=== PATIENT | male | born 1945 | race Caucasian/White ===

== ENCOUNTER 2024-05-21 13:44 | Emergency (ER) | payer MEDICARE, SELFPAY ==
[2024-05-21] VITALS (72 sets, daily range): BP systolic 176–230; BP diastolic 77–148; PULSE 52–133; TEMP 36.6; O2SAT 93–98; BMI 36.9
--- NOTE | 2024-05-21 13:58 | XR_ITS ---
[address] [address] Patient Name: DANG BALDERAS MRN: [id number] date: 1945 Sex: M Assigned Patient Location: ER Current Patient Location: ER Accession/Order Number: [id number] Exam Date: 05/21/2024 14:22 Report Date: 05/21/2024 15:16 At the request of: RENAY MAY Procedure: XR chest 1V EXAM: XR chest 1V HISTORY: change in mental status COMPARISON: None FINDINGS/IMPRESSION: 1. Small left pleural effusion. 2. Bilateral pulmonary vascular congestion. 3. No pneumothorax. 4. Moderate degeneration of the bilateral acromioclavicular joints. 5. Upper abdominal bowel gas pattern is nonspecific. 6. Diffuse idiopathic skeletal hyperostosis of the thoracic spine. Electronically authenticated by: PAULA QUIROGA Date: 05/21/2024 15:16
--- NOTE | 2024-05-21 13:58 | ECG_ITS ---
[facility] Test Date: 2024-05-21 Pat Name: DANG BALDERAS Department: Room: - Gender: Male Delinquent Account Clerk: : 1945 Requested By: Order Number: [id number] Reading MD: ANEESH LOMELI Measurements Intervals [place] Rate: 57 P: 13 NM: 206 QRS: -1 QRSD: 116 T: 44 QT: 468 QTc: 462 Interpretive Statements 1100 Sinus rhythm 1470 with occasional supraventricular premature complexes 2320 Nonspecific intraventricular conduction delay 8304 Long QTc interval 9150 abnormal ECG No previous ECG available for comparison Electronically Signed On 05-22-2024 7:45:07 EDT by ANEESH LOMELI
[2024-05-21 14:04] LABS: Glucometer 119 mg/dL (74-106)
--- NOTE | 2024-05-21 14:07 | ED_ITS ---
Documented by User: Marco Antonio Ramirez MD 05/21/24 16:51 HPI - Altered Mental Status General Chief Complaint: Altered Mental Status Stated Complaint: ALTERED MENTAL Time Seen by Provider: 05/21/24 14:02 Source: patient Mode of arrival: ambulance History of Present Illness HPI narrative: This patient arrived by paramedics. He lives alone in his home and he actually called medics. He told him he just did not feel good. No documented or suspected history of falls or injury at this time. He is somewhat of a limited historian. He states he was at the [facility] recently and may have had a stroke previously but he cannot remember. He denies any headache. He has no chest pain no abdominal pain no nausea or vomiting says he just very family members are not here at this time. He indicates that he has not been to this hospital previously. Denies any specific pain syndrome at this time. He just says he feels weak and does not feel good. Related Data Home Medications ?Medication ?Instructions ?Recorded ?Confirmed amlodipine 5 mg tablet 5 mg PO DAILY 05/21/24 05/21/24 calcitriol 0.25 mcg capsule 0.25 mcg PO .3XAWEEK 05/21/24 05/21/24 carvedilol 25 mg tablet 25 mg PO BID 05/21/24 05/21/24 diphenhydramine HCl 25 mg tablet 25 mg PO QPM 05/21/24 05/21/24 (Allergy Relief (diphenhydramine)) furosemide 40 mg tablet 40 mg PO DAILY 05/21/24 05/21/24 hydralazine 100 mg tablet 100 mg PO TID 05/21/24 losartan 100 mg tablet 100 mg PO DAILY 05/21/24 05/21/24 metoprolol succinate 200 mg 200 mg PO DAILY 05/21/24 05/21/24 tablet,extended release 24 hr nifedipine 60 mg tablet,extended 60 mg PO QAM 05/21/24 05/21/24 release 24 hr probenecid 500 mg-colchicine 0.5 1 tab PO DAILY 05/21/24 05/21/24 mg tablet terazosin 10 mg capsule 10 mg PO QPM 05/21/24 05/21/24 Allergies Allergy/AdvReac Type Severity Reaction Status Date / Time allopurinol Allergy Severe Unknown Verified 05/21/24 13:56 amlodipine Allergy Severe Unknown Verified 05/21/24 13:56 atorvastatin [From Lipitor] Allergy Severe Unknown Verified 05/21/24 13:56 lisinopril Allergy Severe Unknown Verified 05/21/24 13:56 ropinirole Allergy Severe Unknown Verified 05/21/24 13:56 [facility] Medical History (Updated 05/22/24 @ 06:31 by Paolo Palencia MD) Prediabetes ?R73.03 - Prediabetes (ICD-10) Hypertension ?I10 - Essential (primary) hypertension (ICD-10) Chronic kidney disease ?N18.9 - Chronic kidney disease, unspecified (ICD-10) Exam Constitutional Vital Signs, click to edit/add: Last Vital Signs Temp 97.9 F 05/21/24 13:48 Pulse 60 05/21/24 23:12 Resp 20 05/21/24 23:12 BP 194/77 H 05/21/24 23:12 Pulse Ox 97 05/21/24 19:20 O2 Del Method Room Air 05/21/24 14:21 Course Vital Signs Vital signs: Vital Signs Temperature 97.9 F 05/21/24 13:48 Pulse Rate 54 L 05/21/24 13:48 Respiratory Rate 22 H 05/21/24 13:48 Blood Pressure 226/93 H 05/21/24 13:48 Pulse Oximetry 96 05/21/24 13:48 Oxygen Delivery Method Room Air 05/21/24 13:48 Temperature 97.9 F 05/21/24 13:48 Pulse Rate 60 05/21/24 23:12 Respiratory Rate 20 05/21/24 23:12 Blood Pressure 194/77 H 05/21/24 23:12 Pulse Oximetry 97 05/21/24 19:20 Oxygen Delivery Method Room Air 05/21/24 14:21 MDM - Altered Mental Status Lab Data Labs: Lab Results 05/21/24 05/21/24 05/21/24 Range/Units 13:35 13:50 14:01 WBC 6.0 (4.0-11.0) 10^3/uL RBC 4.18 L (4.70-6.10) 10^6/uL Hgb 12.3 L (14.0-18.0) g/dL Hct 35.8 L (42.0-54.0) % MCV 85.6 (80.0-94.0) fL MCH 29.4 (25.9-34.0) pg MCHC 34.4 (29.9-35.2) g/dL RDW 13.9 (11.0-15.0) % Plt Count 160 (150-450) 10^3/uL MPV 10.9 (9.5-13.5) fL Neut % (Auto) 78.2 H (43.0-75.0) % Lymph % (Auto) 12.1 L (20.5-60.0) % [place] % (Auto) 7.9 (1.7-12.0) % Eos % (Auto) 0.5 L (0.9-7.0) % Baso % (Auto) 0.3 (0.2-2.0) % Neut # (Auto) 4.7 (1.4-6.5) 10^3/uL Lymph # (Auto) 0.7 L (1.2-3.8) 10^3/uL [place] # (Auto) 0.5 (0.3-0.8) 10^3/uL Eos # (Auto) 0.0 (0.0-0.7) 10^3/uL Baso # (Auto) 0.0 (0.0-0.1) 10^3/uL Abs Immat Gran (auto) 0.06 H (0.00-0.03) 10^3/uL Imm/Tot Granulo (auto) 1.0 H (0.0-0.5) % Sodium 139 (136-145) mmol/L Potassium 3.9 (3.5-5.1) mmol/L Chloride 103 (98-107) mmol/L Carbon Dioxide 23.9 (21.0-32.0) mmol/L Anion Gap 16.0 BUN 84.0 H* (7.0-18.0) mg/dL Creatinine 3.96 H (0.70-1.30) mg/dL Est GFR ( Amer) 18 L (>=60) Est GFR (Non-Af Amer) 15 L (>=60) BUN/Creatinine Ratio 21.2 Glucose 120 H (74-106) mg/dL Calcium 8.6 (8.5-10.1) mg/dL Total Bilirubin 0.9 (0.2-1.0) mg/dL AST 10 L (15-37) U/L ALT 16 (16-63) U/L Alkaline Phosphatase 75 (46-116) U/L Ammonia (11-32) umol/L Troponin I High Sens 22.2 (4.0-76.1) pg/mL Total Protein 7.1 (6.4-8.2) g/dL Albumin 3.7 (3.4-5.0) g/dL Globulin 3.4 g/dL Albumin/Globulin Ratio 1.1 Urine Color (YELLOW) Urine Clarity (CLEAR) Urine pH (5.0-9.0) Ur Specific [place] (1.005-1.025) Urine Protein (NEG/TRACE) mg/dL Urine Glucose (UA) (NEGATIVE) mg/dL Urine Ketones (NEGATIVE) mg/dL Urine Occult Blood (NEGATIVE) Urine Nitrite (NEGATIVE) Urine Bilirubin (NEGATIVE) Urine Urobilinogen (0.2-1.0) EU/dL Ur Leukocyte Esterase (NEGATIVE) Urine RBC (0-2) #/HPF Urine WBC (NONE SEEN) #/HPF Ur Squamous Epith Cells (NONE/RARE) #/LPF Urine Crystals (None Seen) #/HPF Amorphous Sediment Urine Bacteria (NONE SEEN) #/HPF Urine Casts (NONE SEEN) #/LPF Urine Mucus (NONE SEEN) Ur Culture Indicated? Urine Opiates Screen (NEGATIVE) Ur Buprenorphine Scrn (NEGATIVE) Ur Oxycodone Screen (NEGATIVE) Urine Methadone Screen (NEGATIVE) Ur Barbiturates Screen (NEGATIVE) U Tricyclic Antidepress (NEGATIVE) Ur Phencyclidine Scrn (NEGATIVE) Ur Amphetamines Screen (NEGATIVE) U Methamphetamines Scrn (NEGATIVE) U Benzodiazepines Scrn (NEGATIVE) Urine Cocaine Screen (NEGATIVE) U Cannabinoids Screen (NEGATIVE) Influenza Type A Ag Negative Influenza Type B Ag Negative SARS-CoV-2 Ag (CV2AG) Negative (NEGATIVE) POC Glucose 119 H (74-106) mg/dL 05/21/24 05/21/24 Range/Units 14:12 14:21 WBC (4.0-11.0) 10^3/uL RBC (4.70-6.10) 10^6/uL Hgb (14.0-18.0) g/dL Hct (42.0-54.0) % MCV (80.0-94.0) fL MCH (25.9-34.0) pg MCHC (29.9-35.2) g/dL RDW (11.0-15.0) % Plt Count (150-450) 10^3/uL MPV (9.5-13.5) fL Neut % (Auto) (43.0-75.0) % Lymph % (Auto) (20.5-60.0) % [place] % (Auto) (1.7-12.0) % Eos % (Auto) (0.9-7.0) % Baso % (Auto) (0.2-2.0) % Neut # (Auto) (1.4-6.5) 10^3/uL Lymph # (Auto) (1.2-3.8) 10^3/uL [place] # (Auto) (0.3-0.8) 10^3/uL Eos # (Auto) (0.0-0.7) 10^3/uL Baso # (Auto) (0.0-0.1) 10^3/uL Abs Immat Gran (auto) (0.00-0.03) 10^3/uL Imm/Tot Granulo (auto) (0.0-0.5) % Sodium (136-145) mmol/L Potassium (3.5-5.1) mmol/L Chloride (98-107) mmol/L Carbon Dioxide (21.0-32.0) mmol/L Anion Gap BUN (7.0-18.0) mg/dL Creatinine (0.70-1.30) mg/dL Est GFR ( Amer) (>=60) Est GFR (Non-Af Amer) (>=60) BUN/Creatinine Ratio Glucose (74-106) mg/dL Calcium (8.5-10.1) mg/dL Total Bilirubin (0.2-1.0) mg/dL AST (15-37) U/L ALT (16-63) U/L Alkaline Phosphatase (46-116) U/L Ammonia 15 (11-32) umol/L Troponin I High Sens (4.0-76.1) pg/mL Total Protein (6.4-8.2) g/dL Albumin (3.4-5.0) g/dL Globulin g/dL Albumin/Globulin Ratio Urine Color Lt. yellow (YELLOW) Urine Clarity Sl cloudy (CLEAR) Urine pH 6.0 (5.0-9.0) Ur Specific [place] 1.010 (1.005-1.025) Urine Protein 30 A (NEG/TRACE) mg/dL Urine Glucose (UA) Negative (NEGATIVE) mg/dL Urine Ketones Negative (NEGATIVE) mg/dL Urine Occult Blood Negative (NEGATIVE) Urine Nitrite Negative (NEGATIVE) Urine Bilirubin Negative (NEGATIVE) Urine Urobilinogen 0.2 (0.2-1.0) EU/dL Ur Leukocyte Esterase Trace A (NEGATIVE) Urine RBC 0-2 (0-2) #/HPF Urine WBC 2-5 A (NONE SEEN) #/HPF Ur Squamous Epith Cells Few A (NONE/RARE) #/LPF Urine Crystals Seen A (None Seen) #/HPF Amorphous Sediment Few Urine Bacteria Small A (NONE SEEN) #/HPF Urine Casts None seen (NONE SEEN) #/LPF Urine Mucus Trace A (NONE SEEN) Ur Culture Indicated? Yes Urine Opiates Screen Negative (NEGATIVE) Ur Buprenorphine Scrn Negative (NEGATIVE) Ur Oxycodone Screen Negative (NEGATIVE) Urine Methadone Screen Negative (NEGATIVE) Ur Barbiturates Screen Negative (NEGATIVE) U Tricyclic Antidepress Negative (NEGATIVE) Ur Phencyclidine Scrn Negative (NEGATIVE) Ur Amphetamines Screen Negative (NEGATIVE) U Methamphetamines Scrn Negative (NEGATIVE) U Benzodiazepines Scrn Negative (NEGATIVE) Urine Cocaine Screen Negative (NEGATIVE) U Cannabinoids Screen Negative (NEGATIVE) Influenza Type A Ag Influenza Type B Ag SARS-CoV-2 Ag (CV2AG) (NEGATIVE) POC Glucose (74-106) mg/dL Imaging Data Imaging: Radiologist's impression: ITS Impressions Head CT 05/21/24 14:08 IMPRESSION: No acute intracranial findings. Electronically authenticated by: KATARZYNA SMITH Date: 05/21/2024 15:28 Discharge Plan Discharge Chief Complaint: Altered Mental Status Clinical Impression: Dementia, Debility, DENNIS (acute kidney injury) Patient Disposition: [facility] Discharge Date/Time: 05/21/24 23:33 Documented by User: Paolo Palencia MD 05/22/24 06:31 HPI - Altered Mental Status General Chief Complaint: Altered Mental Status Stated Complaint: ALTERED MENTAL Time Seen by Provider: 05/21/24 14:02 Related Data Home Medications ?Medication ?Instructions ?Recorded ?Confirmed amlodipine 5 mg tablet 5 mg PO DAILY 05/21/24 05/21/24 calcitriol 0.25 mcg capsule 0.25 mcg PO .3XAWEEK 05/21/24 05/21/24 carvedilol 25 mg tablet 25 mg PO BID 05/21/24 05/21/24 diphenhydramine HCl 25 mg tablet 25 mg PO QPM 05/21/24 05/21/24 (Allergy Relief (diphenhydramine)) furosemide 40 mg tablet 40 mg PO DAILY 05/21/24 05/21/24 hydralazine 100 mg tablet 100 mg PO TID 05/21/24 losartan 100 mg tablet 100 mg PO DAILY 05/21/24 05/21/24 metoprolol succinate 200 mg 200 mg PO DAILY 05/21/24 05/21/24 tablet,extended release 24 hr nifedipine 60 mg tablet,extended 60 mg PO QAM 05/21/24 05/21/24 release 24 hr probenecid 500 mg-colchicine 0.5 1 tab PO DAILY 05/21/24 05/21/24 mg tablet terazosin 10 mg capsule 10 mg PO QPM 05/21/24 05/21/24 Allergies Allergy/AdvReac Type Severity Reaction Status Date / Time allopurinol Allergy Severe Unknown Verified 05/21/24 13:56 amlodipine Allergy Severe Unknown Verified 05/21/24 13:56 atorvastatin [From Lipitor] Allergy Severe Unknown Verified 05/21/24 13:56 lisinopril Allergy Severe Unknown Verified 05/21/24 13:56 ropinirole Allergy Severe Unknown Verified 05/21/24 13:56 Review of Systems ROS Status of ROS 10 or more systems reviewed and unremark able except as noted in history and below [facility] Medical History (Updated 05/22/24 @ 06:31 by Paolo Palencia MD) Prediabetes ?R73.03 - Prediabetes (ICD-10) Hypertension ?I10 - Essential (primary) hypertension (ICD-10) Chronic kidney disease ?N18.9 - Chronic kidney disease, unspecified (ICD-10) Exam Narrative Exam Narrative: VITALS: I have reviewed the triage vital signs. GENERAL: Well developed, well appearing adult in no acute distress. NEURO: Alert and oriented x2. Moves all extremities. Face is symmetric and expressive. EYES: PERRL. No scleral icterus or conjunctival injection. No discharge. HENT: Normocephalic, atraumatic. Hearing is grossly intact. Nares grossly patent and without discharge. Mucous membranes moist. NECK: No JVD. Patient moves neck without restriction. CARDIO: Rhythm regular. Normal rate. No murmur, rub, or gallop. Pulses equal bilaterally in the upper and lower extremity. No lower extremity edema. PULM: Lungs clear to auscultation in all [place]. No wheezes, rales, or rhonchi. No conversational dyspnea. No splinting, stridor, or accessory muscle use. GI/: Abdomen is soft and non-tender. Normoactive bowel sounds. EXTREMITIES: Symmetric muscle bulk. No joint swelling. No clubbing, cyanosis, or deformity. SKIN: Warm and dry. Normal turgor. No rash or lesions appreciated. PSYCH: Mood, affect, and interaction is appropriate to the setting. Constitutional Vital Signs, click to edit/add: Last Vital Signs Temp 97.9 F 05/21/24 13:48 Pulse 60 05/21/24 23:12 Resp 20 05/21/24 23:12 BP 194/77 H 05/21/24 23:12 Pulse Ox 97 05/21/24 19:20 O2 Del Method Room Air 05/21/24 14:21 Course Vital Signs Vital signs: Vital Signs Temperature 97.9 F 05/21/24 13:48 Pulse Rate 54 L 05/21/24 13:48 Respiratory Rate 22 H 05/21/24 13:48 Blood Pressure 226/93 H 05/21/24 13:48 Pulse Oximetry 96 05/21/24 13:48 Oxygen Delivery Method Room Air 05/21/24 13:48 Temperature 97.9 F 05/21/24 13:48 Pulse Rate 60 05/21/24 23:12 Respiratory Rate 20 05/21/24 23:12 Blood Pressure 194/77 H 05/21/24 23:12 Pulse Oximetry 97 05/21/24 19:20 Oxygen Delivery Method Room Air 05/21/24 14:21 MDM - Altered Mental Status MDM Narrative Medical decision making narrative: Signout note: Patient was signed out to me by Dr. Ramirez with admission conversation to be had. Family request that he return to [place]. Workup was reviewed. DENNIS. I discussed the case with Marlen at [facility] who accepted the patient. Transport was arranged. Patient was transported back to [facility] for further care of his DENNIS, confusion, need for placement. Medical Records Attestation: I reviewed the patient's medical records. Lab Data Attestation: I reviewed the patient's lab results. Labs: Lab Results 05/21/24 05/21/24 05/21/24 Range/Units 13:35 13:50 14:01 WBC 6.0 (4.0-11.0) 10^3/uL RBC 4.18 L (4.70-6.10) 10^6/uL Hgb 12.3 L (14.0-18.0) g/dL Hct 35.8 L (42.0-54.0) % MCV 85.6 (80.0-94.0) fL MCH 29.4 (25.9-34.0) pg MCHC 34.4 (29.9-35.2) g/dL RDW 13.9 (11.0-15.0) % Plt Count 160 (150-450) 10^3/uL MPV 10.9 (9.5-13.5) fL Neut % (Auto) 78.2 H (43.0-75.0) % Lymph % (Auto) 12.1 L (20.5-60.0) % [place] % (Auto) 7.9 (1.7-12.0) % Eos % (Auto) 0.5 L (0.9-7.0) % Baso % (Auto) 0.3 (0.2-2.0) % Neut # (Auto) 4.7 (1.4-6.5) 10^3/uL Lymph # (Auto) 0.7 L (1.2-3.8) 10^3/uL [place] # (Auto) 0.5 (0.3-0.8) 10^3/uL Eos # (Auto) 0.0 (0.0-0.7) 10^3/uL Baso # (Auto) 0.0 (0.0-0.1) 10^3/uL Abs Immat Gran (auto) 0.06 H (0.00-0.03) 10^3/uL Imm/Tot Granulo (auto) 1.0 H (0.0-0.5) % Sodium 139 (136-145) mmol/L Potassium 3.9 (3.5-5.1) mmol/L Chloride 103 (98-107) mmol/L Carbon Dioxide 23.9 (21.0-32.0) mmol/L Anion Gap 16.0 BUN 84.0 H* (7.0-18.0) mg/dL Creatinine 3.96 H (0.70-1.30) mg/dL Est GFR ( Amer) 18 L (>=60) Est GFR (Non-Af Amer) 15 L (>=60) BUN/Creatinine Ratio 21.2 Glucose 120 H (74-106) mg/dL Calcium 8.6 (8.5-10.1) mg/dL Total Bilirubin 0.9 (0.2-1.0) mg/dL AST 10 L (15-37) U/L ALT 16 (16-63) U/L Alkaline Phosphatase 75 (46-116) U/L Ammonia (11-32) umol/L Troponin I High Sens 22.2 (4.0-76.1) pg/mL Total Protein 7.1 (6.4-8.2) g/dL Albumin 3.7 (3.4-5.0) g/dL Globulin 3.4 g/dL Albumin/Globulin Ratio 1.1 Urine Color (YELLOW) Urine Clarity (CLEAR) Urine pH (5.0-9.0) Ur Specific [place] (1.005-1.025) Urine Protein (NEG/TRACE) mg/dL Urine Glucose (UA) (NEGATIVE) mg/dL Urine Ketones (NEGATIVE) mg/dL Urine Occult Blood (NEGATIVE) Urine Nitrite (NEGATIVE) Urine Bilirubin (NEGATIVE) Urine Urobilinogen (0.2-1.0) EU/dL Ur Leukocyte Esterase (NEGATIVE) Urine RBC (0-2) #/HPF Urine WBC (NONE SEEN) #/HPF Ur Squamous Epith Cells (NONE/RARE) #/LPF Urine Crystals (None Seen) #/HPF Amorphous Sediment Urine Bacteria (NONE SEEN) #/HPF Urine Casts (NONE SEEN) #/LPF Urine Mucus (NONE SEEN) Ur Culture Indicated? Urine Opiates Screen (NEGATIVE) Ur Buprenorphine Scrn (NEGATIVE) Ur Oxycodone Screen (NEGATIVE) Urine Methadone Screen (NEGATIVE) Ur Barbiturates Screen (NEGATIVE) U Tricyclic Antidepress (NEGATIVE) Ur Phencyclidine Scrn (NEGATIVE) Ur Amphetamines Screen (NEGATIVE) U Methamphetamines Scrn (NEGATIVE) U Benzodiazepines Scrn (NEGATIVE) Urine Cocaine Screen (NEGATIVE) U Cannabinoids Screen (NEGATIVE) Influenza Type A Ag Negative Influenza Type B Ag Negative SARS-CoV-2 Ag (CV2AG) Negative (NEGATIVE) POC Glucose 119 H (74-106) mg/dL 05/21/24 05/21/24 Range/Units 14:12 14:21 WBC (4.0-11.0) 10^3/uL RBC (4.70-6.10) 10^6/uL Hgb (14.0-18.0) g/dL Hct (42.0-54.0) % MCV (80.0-94.0) fL MCH (25.9-34.0) pg MCHC (29.9-35.2) g/dL RDW (11.0-15.0) % Plt Count (150-450) 10^3/uL MPV (9.5-13.5) fL Neut % (Auto) (43.0-75.0) % Lymph % (Auto) (20.5-60.0) % [place] % (Auto) (1.7-12.0) % Eos % (Auto) (0.9-7.0) % Baso % (Auto) (0.2-2.0) % Neut # (Auto) (1.4-6.5) 10^3/uL Lymph # (Auto) (1.2-3.8) 10^3/uL [place] # (Auto) (0.3-0.8) 10^3/uL Eos # (Auto) (0.0-0.7) 10^3/uL Baso # (Auto) (0.0-0.1) 10^3/uL Abs Immat Gran (auto) (0.00-0.03) 10^3/uL Imm/Tot Granulo (auto) (0.0-0.5) % Sodium (136-145) mmol/L Potassium (3.5-5.1) mmol/L Chloride (98-107) mmol/L Carbon Dioxide (21.0-32.0) mmol/L Anion Gap BUN (7.0-18.0) mg/dL Creatinine (0.70-1.30) mg/dL Est GFR ( Amer) (>=60) Est GFR (Non-Af Amer) (>=60) BUN/Creatinine Ratio Glucose (74-106) mg/dL Calcium (8.5-10.1) mg/dL Total Bilirubin (0.2-1.0) mg/dL AST (15-37) U/L ALT (16-63) U/L Alkaline Phosphatase (46-116) U/L Ammonia 15 (11-32) umol/L Troponin I High Sens (4.0-76.1) pg/mL Total Protein (6.4-8.2) g/dL Albumin (3.4-5.0) g/dL Globulin g/dL Albumin/Globulin Ratio Urine Color Lt. yellow (YELLOW) Urine Clarity Sl cloudy (CLEAR) Urine pH 6.0 (5.0-9.0) Ur Specific [place] 1.010 (1.005-1.025) Urine Protein 30 A (NEG/TRACE) mg/dL Urine Glucose (UA) Negative (NEGATIVE) mg/dL Urine Ketones Negative (NEGATIVE) mg/dL Urine Occult Blood Negative (NEGATIVE) Urine Nitrite Negative (NEGATIVE) Urine Bilirubin Negative (NEGATIVE) Urine Urobilinogen 0.2 (0.2-1.0) EU/dL Ur Leukocyte Esterase Trace A (NEGATIVE) Urine RBC 0-2 (0-2) #/HPF Urine WBC 2-5 A (NONE SEEN) #/HPF Ur Squamous Epith Cells Few A (NONE/RARE) #/LPF Urine Crystals Seen A (None Seen) #/HPF Amorphous Sediment Few Urine Bacteria Small A (NONE SEEN) #/HPF Urine Casts None seen (NONE SEEN) #/LPF Urine Mucus Trace A (NONE SEEN) Ur Culture Indicated? Yes Urine Opiates Screen Negative (NEGATIVE) Ur Buprenorphine Scrn Negative (NEGATIVE) Ur Oxycodone Screen Negative (NEGATIVE) Urine Methadone Screen Negative (NEGATIVE) Ur Barbiturates Screen Negative (NEGATIVE) U Tricyclic Antidepress Negative (NEGATIVE) Ur Phencyclidine Scrn Negative (NEGATIVE) Ur Amphetamines Screen Negative (NEGATIVE) U Methamphetamines Scrn Negative (NEGATIVE) U Benzodiazepines Scrn Negative (NEGATIVE) Urine Cocaine Screen Negative (NEGATIVE) U Cannabinoids Screen Negative (NEGATIVE) Influenza Type A Ag Influenza Type B Ag SARS-CoV-2 Ag (CV2AG) (NEGATIVE) POC Glucose (74-106) mg/dL Imaging Data Imaging: Attestation: I have reviewed the pertinent imaging results. Radiologist's impression: ITS Impressions Head CT 05/21/24 14:08 IMPRESSION: No acute intracranial findings. Electronically authenticated by: KATARZYNA SMITH Date: 05/21/2024 15:28 ECG Data Attestation: ?I have reviewed the pertinent ECG results. Discharge Plan Discharge Chief Complaint: Altered Mental Status Clinical Impression: Dementia, Debility, DENNIS (acute kidney injury) Patient Disposition: [facility] Discharge Date/Time: 05/21/24 23:33
--- NOTE | 2024-05-21 14:08 | CT_ITS ---
[address] [address] Patient Name: DANG BALDERAS MRN: [id number] date: 1945 Sex: M Assigned Patient Location: ER Current Patient Location: ER Accession/Order Number: [id number] Exam Date: 05/21/2024 14:35 Report Date: 05/21/2024 15:28 At the request of: RENAY MAY Procedure: CT head/brain wo con EXAMINATION: CT head/brain wo con, 05/21/2024 2:35 PM EDT HISTORY: Altered mental status COMPARISON: None. TECHNIQUE: CT scan of the head was performed without IV contrast. CT dose reduction technique was used, including Automated Exposure Control. FINDINGS: BRAIN PARENCHYMA/CSF SPACES: Prominence of the ventricles and sulci compatible with diffuse cerebral atrophy. There is no hemorrhage, mass effect or midline shift. Moderate low attenuation in the white matter consistent with chronic microvascular ischemia. PARANASAL SINUSES: Clear. SKULL BASE AND CALVARIUM: Normal. EXTRACRANIAL SOFT TISSUES: Normal. CT/CT head/brain wo con IMPRESSION: No acute intracranial findings. Electronically authenticated by: KATARZYNA SMITH Date: 05/21/2024 15:28
[2024-05-21 14:31] LABS: Basophils Percent Auto 0.3 % (0.2-2.0); Eosinophils Percent Auto 0.5 % (0.9-7.0); Hematocrit 35.8 % (42.0-54.0); Hemoglobin 12.3 g/dL (14.0-18.0); Immature Granulocytes Abs Auto 0.06 10^3/uL (0.00-0.03); Lymphocytes Absolute Auto 0.7 10^3/uL (1.2-3.8); Lymphocytes Percent Auto 12.1 % (20.5-60.0); Mean Corpuscular HGB Conc 34.4 g/dL (29.9-35.2); Mean Corpuscular Hemoglobin 29.4 pg (25.9-34.0); Mean Corpuscular Volume 85.6 fL (80.0-94.0); Mean Platelet Volume 10.9 fL (9.5-13.5); Monocytes Absolute Auto 0.5 10^3/uL (0.3-0.8); Monocytes Percent Auto 7.9 % (1.7-12.0); Neutrophils Absolute Auto 4.7 10^3/uL (1.4-6.5); Neutrophils Percent Auto 78.2 % (43.0-75.0); Platelet Count 160 10^3/uL (150-450); Red Blood Count 4.18 10^6/uL (4.70-6.10); Red Cell Distribution Width 13.9 % (11.0-15.0)
[2024-05-21 14:43] LABS: Bilirubin Urine NEGATIVE (NEGATIVE); Blood Urine NEGATIVE (NEGATIVE); Clarity Urine SL CLOUDY (CLEAR); Color Urine LT. YELLOW (YELLOW); Glucose Urine UA NEGATIVE (NEGATIVE); Ketones Urine NEGATIVE (NEGATIVE); Leukocyte Esterase Urine TRACE (NEGATIVE); Nitrite Urine NEGATIVE (NEGATIVE); Protein Urine 30 mg/dL (NEG/TRACE); Urobilinogen Urine 0.2 EU/dL (0.2-1.0)
[2024-05-21 14:44] LABS: Alanine Aminotransferase 16 U/L (16-63); Albumin Globulin Ratio 1.1; Albumin Level 3.7 g/dL (3.4-5.0); Alkaline Phosphatase 75 U/L (46-116); Aspartate Amino Transferase 10 U/L (15-37); BUN Creatinine Ratio 21.2; Bilirubin Total 0.9 mg/dL (0.2-1.0); Calcium 8.6 mg/dL (8.5-10.1); Carbon Dioxide 23.9 mmol/L (21.0-32.0); Chloride 103 mmol/L (98-107); Estimated GFR (African America 18 (>=60); Estimated GFR (Non-African Ame 15 (>=60); Globulin 3.4 g/dL; Glucose 120 mg/dL (74-106); Potassium 3.9 mmol/L (3.5-5.1); Sodium 139 mmol/L (136-145); Total Protein 7.1 g/dL (6.4-8.2)
[2024-05-21 14:45] LABS: Ammonia 15 umol/L (11-32)
[2024-05-21 14:46] LABS: Troponin I High Sensitivity 22.2 pg/mL (4.0-76.1)
[2024-05-21 14:47] LABS: Urine Microscopic Indicated YES
[2024-05-21 14:53] LABS: Influenza Virus A Antigen Negative; Influenza Virus B Antigen Negative
[2024-05-21 14:54] LABS: Internal Control Within Normal Limits; SARS-CoV-2 Ag NEGATIVE (NEGATIVE)
[2024-05-21 14:57] LABS: Amphetamine Screen Urine NEGATIVE (NEGATIVE); Barbiturates Screen Urine NEGATIVE (NEGATIVE); Benzodiazepines Screen Urine NEGATIVE (NEGATIVE); Buprenorphine Screen Urine NEGATIVE (NEGATIVE); Cannabinoid Screen Urine NEGATIVE (NEGATIVE); Cocaine Screen Urine NEGATIVE (NEGATIVE); Methadone Screen Urine NEGATIVE (NEGATIVE); Methamphetamines Screen Urine NEGATIVE (NEGATIVE); Opiate Screen Urine NEGATIVE (NEGATIVE); Oxycodone Screen Urine NEGATIVE (NEGATIVE); Phencyclidine Screen Urine NEGATIVE (NEGATIVE); Tricyclic Antidepressant Urine NEGATIVE (NEGATIVE)
[2024-05-21 15:07] LABS: Bacteria Urine SMALL #/HPF (NONE SEEN); RBC Urine 0-2 #/HPF (0-2)
[2024-05-21 15:08] LABS: Amorphous Sediment Urine FEW; Cast Seen? NONE SEEN #/LPF (NONE SEEN); Crystals Seen? Seen #/HPF (None Seen); Mucus Urine TRACE (NONE SEEN); Squamous Epithelial Cell Urine FEW #/LPF (NONE/RARE); Urine Culture Indicated YES
[2024-05-21] MEDS: HYDRALAZINE HCL 25 MG TABLET 100 MG PO (21:21)
== END 2024-05-21 23:33 | disposition short-term general hospital (02) ==
PROVIDERS: Emergency Medicine Emergency Medical Services; Emergency Provider Student in an Organized Health Care Education/Training Program
DX: N17.9 Acute kidney failure, unspecified (principal); F03.90 Unspecified dementia, unspecified severity, without behavioral disturbance, psychotic disturbance, mood disturbance, and anxiety; R53.81 Other malaise; R53.1 Weakness; Z79.899 Other long term (current) drug therapy
CPT/HCPCS: 36415; 70450; 71045; 80053; 80307; 81001; 82140; 82948; 84484; 85025; 87086; 87502; 87804; 87811; 93005; 99285